=== PATIENT | female | born 1940 | race Caucasian/White ===

== ENCOUNTER 2017-12-15 07:21 | Day surgery (SDC) ==
[2017-12-15] MEDS ORDERED: LIDOCAINE 1% 20 ML MDV ID STA (08:08)
[2017-12-15] MEDS ORDERED: VERSED ONE (09:40)
[2017-12-15] MEDS ORDERED: DIPRIVAN 20 ML VIAL IVP ONE (09:40)
[2017-12-15 11:17] VITALS: BP 136/76; TEMP 98.6
--- NOTE | 2017-12-16 09:55 | OP ---
PROCEDURE: COLONOSCOPY TO THE CECUM. ENDOSCOPIST: Mitchell JIMENEZ M.D. INDICATION: HEMORRHOIDS. INSTRUMENT: PCFH-190. MEDICATION: PER ANESTHESIA. PROCEDURE: The patient was positioned for colonoscopy. The digital rectal exam was negative. The colonoscope was inserted through the anus and advanced to the cecum. The cecum was identified using the ileocecal valve and the appendiceal orifice as landmarks. The scope was slowly withdrawn through an adequately prepped colon. [place] Bowel Prep Score of 2 + 2 + 3 = 7. Few scattered diverticula noted in left colon. External hemorrhoids are noted on retroflex exam. No other abnormalities are seen. The patient tolerated the procedure without immediate complication. Withdrawal time 8 minutes and 28 seconds. PLAN: 1. Local care for her hemorrhoids including gutl-uhl-kuvcacs ointments and Sitz bath. 2. Repeat colonoscopy for screening in 10 years. CC: DR. ZENY SHELBY
== END 2017-12-15 10:30 | disposition home or self-care (01) ==
LOC: SURG 07:21
PROVIDERS: ATTEND Internal Medicine Gastroenterology
DX: K64.4 Residual hemorrhoidal skin tags (principal); K57.30 Diverticulosis of large intestine without perforation or abscess without bleeding

== ENCOUNTER 2018-11-24 16:01 | Emergency (ER) | payer OTHER ==
[2018-11-24 16:18] VITALS: BP 174/69; TEMP 98.4; BMI 28.3
[2018-11-24] MEDS ORDERED: LIDOCAINE HCL 1% SDV IM STA (16:29)
[2018-11-24] MEDS ORDERED: ROCEPHIN IM STA (16:29)
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
== END 2018-11-24 17:28 | disposition home or self-care (01) ==
LOC: ED 16:01
DX: S61.452A Open bite of left hand, initial encounter (principal); W55.01XA Bitten by cat, initial encounter
CPT/HCPCS: 96372; 99283